=== PATIENT | female | born 1985 | race Two or more races ===

== ENCOUNTER 2017-04-05 18:30 | Emergency (ER) | payer MEDICAID, OTHER ==
[~2017-04-05] VITALS: Ht 157.5 cm; Wt 72.6 kg
[~2017-04-05 18:30] MED LIST: CYCLOBENZAPRINE10 MG ORAL; IBUPROFEN600 MG ORAL; NORCO 5-325 TA1 EACH ORAL
[2017-04-05 18:50] VITALS: BP 130/82
[2017-04-05 19:34] LABS: APPEARANCE,URINE CLEAR; BILIRUBIN, URINE NEGATIVE (NEGATIVE); COLOR,URINE PALE YELLOW; GLUCOSE, URINE (UA) NEGATIVE (NEGATIVE); KETONES,URINE NEGATIVE (NEGATIVE); LEUKOCYTE ESTERASE ,URINE 2+ (NEGATIVE); NITRITE,URINE NEGATIVE (NEGATIVE); PH,URINE 8 (4.5-8.0); PROTEIN,URINE NEGATIVE (NEGATIVE); UROBILINOGEN,URINE NORMAL MG/DL (0.0-1.0)
--- NOTE | 2017-04-05 19:44 | Emergency Room Report ---
History of Present Illness General Chief Complaint: Flu Like Symptoms Source: Patient Present Illness HPI 32-year-old female presents to the emergency department complaining of intermittent dull headache that she describes as 5/10 in severity with dry cough , nasal congestion, sneezing x1 month. Patient denies fevers or chills. Patient also reports increased pressure/discomfort in the left ear. She denies recent travel or ill contacts. Denies history of migraines, urinary frequency, urgency or dysuria. She denies nausea, vomiting, abdominal pain, weakness or tinnitus. Denies sore throat, high fevers, lethargy, neck pain/stiffness, irritability, photophobia dehydration, N/V/D. Denies Cp, Palpitations, LOC, AMS , seizures, paresthesias, or changes in Hearing or vision, no Sudden severe CORRAL. Allergies: Coded Allergies: NO KNOWN DRUG ALLERGIES (Unverified Allergy, Unknown, 03/05/14) Patient History Past Medical History: see triage record Past Surgical History: none Pertinent Family History: none Reviewed Nursing Documentation: PMH: Agreed, PSxH: Agreed Nursing Documentation-PMH Past Medical History: No Stated History Review of Systems All Other Systems: negative except mentioned in HPI Physical Exam Vital Signs Date Time Temp Pulse Resp B/P (MAP) Pulse Ox O2 Delivery O2 Flow Rate FiO2 04/05/17 18:39 97.9 72 20 130/82 96 Room Air Sp02 EP Interpretation: reviewed, normal General Appearance: no apparent distress, alert, GCS 15, non-toxic Head: normocephalic, atraumatic Eyes: bilateral eye normal inspection, bilateral eye PERRL ENT: hearing grossly normal, normal voice, TMs + canals normal, uvula midline, moist mucus membranes, nasal congestion Neck: full range of motion Respiratory: chest non-tender, lungs clear, normal breath sounds, no respiratory distress, no wheezing, speaking full sentences Cardiovascular #1: regular rate, rhythm Genitourinary: normal inspection, no CVA tenderness Musculoskeletal: back normal, gait/station normal, normal range of motion, non- tender Neurologic: alert, oriented x3, responsive, motor strength/tone normal, sensory intact, speech normal, grossly normal Psychiatric: judgement/insight normal Skin: normal color, no rash, warm/dry, well hydrated Lymphatic: no adenopathy Medical Decision Making PA Attestation Dr. Vegas is my supervising Physician whom patient management has been discussed with. Diagnostic Impression: Primary Impression: Upper respiratory infection Qualified Codes: J06.9 - Acute upper respiratory infection, unspecified Additional Impressions: Nasal congestion UTI (urinary tract infection) Qualified Codes: N30.00 - Acute cystitis without hematuria ER Course 32-year-old female presents to the emergency department complaining of intermittent dull headache that she describes as 5/10 in severity with dry cough , nasal congestion, sneezing x1 month. Patient denies fevers or chills. Patient also reports increased pressure/discomfort in the left ear. She denies recent travel or ill contacts. Denies history of migraines, urinary frequency, urgency or dysuria. She denies nausea, vomiting, abdominal pain, weakness or tinnitus. Denies sore throat, high fevers, lethargy, neck pain/stiffness, irritability, photophobia dehydration, N/V/D. Denies Cp, Palpitations, LOC, AMS , seizures, paresthesias, or changes in Hearing or vision, no Sudden severe CORRAL. Ddx considered but are not limited to URI, pneumonia, PE, strep pharyngitis, meningitis. Vital signs: Pt. is afebrile, the remaining VS are WNL H&PE are most consistent with URI- no meningeal signs, oropharynx is not involved, no evidence of bacterial infection at this time. Allergies also suspected to contribute to her symptoms. due to recurrent dull CORRAL will r/o UTI. ORDERS: -UA: positive for bacteria with increased inflammatory markers. ED INTERVENTIONS: None required at this time. --PT. EDUCATION: Discussed antibiotic resistance with inappropriate prescribing of antibiotics for viral illnesses. Discussed signs and symptoms to indicate viral illness versus bacterial illness. DISCHARGE: At this time pt. is stable for d/c to home. Will provide printed patient care instructions, and any necessary prescriptions. Care plan and follow up instructions have been discussed with the patient prior to discharge. Labs Test 04/05/17 19:10 Urine Color Pale yellow Urine Appearance Clear Urine pH 8 (4.5-8.0) Urine Specific [place] 1.010 (1.005-1.035) Urine Protein Negative (NEGATIVE) Urine Glucose (UA) Negative (NEGATIVE) Urine Ketones Negative (NEGATIVE) Urine Occult Blood Negative (NEGATIVE) Urine Nitrite Negative (NEGATIVE) Urine Bilirubin Negative (NEGATIVE) Urine Urobilinogen Normal MG/DL (0.0-1.0) Urine Leukocyte Esterase 2+ (NEGATIVE) Urine RBC 0-2 /HPF (0 - 2) Urine WBC 2-4 /HPF (0 - 2) Urine Squamous Epithelial Cells Few /LPF (NONE/OCC) Urine Amorphous Sediment Few /LPF (NONE) Urine Bacteria Few /HPF (NONE) Last Vital Signs Date Time Temp Pulse Resp B/P (MAP) Pulse Ox O2 Delivery O2 Flow Rate FiO2 04/05/17 18:50 72 20 Room Air 04/05/17 18:50 97.9 130/82 96 Disposition: HOME, SELF-CARE Condition: Stable Scripts Nitrofurantoin Monohyd/M-Cryst* (MACROBID 100 MG*) 100 Mg Capsule 100 MG ORAL EVERY 12 HOURS for 5 Days, #10 CAP Prov: Leann Bauer P.A. 04/05/17 Fluticasone Furoate (FLONASE SENSIMIST) 9.9 Ml [place].susp 9.9 ML NS DAILY, #9.9 ML Prov: Leann Bauer P.A. 04/05/17 Aspirin/Acetaminophen/Caffeine (EXCEDRIN MIGRAINE GELTAB) 1 Each Tablet 1 EACH PO Q6HR, #20 TAB Prov: Leann Bauer P.A. 04/05/17 Pseudoephedrine Hcl* (NEXAFED*) 30 Mg Tablet 30 MG ORAL Q6H Y for congestion, #20 TAB Prov: Leann Bauer P.A. 04/05/17 Guaifenesin (Guaifenesin) 1,200 Mg Tab.er.12h 1200 MG PO BID, #20 TAB Prov: Leann Bauer P.A. 04/05/17 Codeine/Promethazine Hcl* (PROMETHAZINE-CODEINE SYRUP*) 118 Ml Syrup 5 ML ORAL Q6H Y for For Cough, #120 ML 0 Refills Prov: Leann Bauer.A. 04/05/17 Patient Instructions: Upper Respiratory Infection, Adult, [id number] Additional Instructions: Take medications as directed. Follow up with a Primary Care Provider in 3-5 days, even if your symptoms have resolved. --Please review list of primary care clinics, if you do not already have a primary care provider Return sooner to ED if new symptoms occur, or current symptoms become worse. Do not drink alcohol, drive, or operate heavy machinery while taking Cough Syrup as this may cause drowsiness. - Please note that this Emergency Department Report was dictated using [employer] it technology software, occasionally this can lead to erroneous entry secondary to interpretation by the dictation equipment. Leann Bauer Apr 05, 2017 19:44
[2017-04-05] MEDS ORDERED: EXCEDRIN MIGRA1 EACH PO (19:46)
[2017-04-05] MEDS ORDERED: FLONASE SENSIM9.9 ML NS (19:46)
[2017-04-05] MEDS ORDERED: GUAIFENESIN1200 MG PO (19:46)
[2017-04-05] MEDS ORDERED: NEXAFED30 MG ORAL (19:46)
[2017-04-05] MEDS ORDERED: PROMETHAZINE-C118 M1 ORAL (19:46)
[2017-04-05] MEDS ORDERED: NITROFURANTOIN100 M2 ORAL (19:54)
[2017-04-05 20:02] VITALS: BP 122/75
== END 2017-04-05 20:02 | disposition home or self-care (01) ==
LOC: EMR 19:10
DX: J06.9 Acute upper respiratory infection, unspecified (principal); N39.0 Urinary tract infection, site not specified
CPT/HCPCS: 81003; 99284

== ENCOUNTER 2017-04-16 17:50 | Emergency (ER) | payer OTHER ==
[~2017-04-16] VITALS: Ht 157.5 cm; Wt 74.4 kg
[~2017-04-16 17:50] MED LIST changes: +EXCEDRIN MIGRA1 EACH PO; +FLONASE SENSIM9.9 ML NS; +GUAIFENESIN1200 MG PO; +NEXAFED30 MG ORAL; +NITROFURANTOIN100 M2 ORAL; +PROMETHAZINE-C118 M1 ORAL
[2017-04-16] MEDS ORDERED: NKM (18:26)
[2017-04-16] MEDS ORDERED: FLUCONAZOLE150 MG ORAL (18:36)
[2017-04-16] MEDS ORDERED: CLARITIN-D 121 EAC1 ORAL (18:49)
[2017-04-16 18:50] VITALS: BP 113/74
[2017-04-16 18:59] VITALS: BP 113/74
--- NOTE | 2017-04-17 15:11 | Emergency Room Report ---
History of Present Illness General Chief Complaint: Upper Respiratory Illness Source: Patient Present Illness HPI 32-year-old female presents ED for violation. Patient states she's noticing some vaginal itching and discharge. States it is white and curdish. Patient states she was received on antibiotics for UTI. States the dysuria has nearly resolved. Denies any fevers or chills. Denies flank pain. Denies nausea or vomiting. Denies any recent sexual unprotected. No other aggravating relieving factors. Denies any other associated symptoms Allergies: Coded Allergies: NO KNOWN DRUG ALLERGIES (Unverified Allergy, Unknown, 03/05/14) Patient History Past Medical History: none Past Surgical History: none Pertinent Family History: none Last Menstrual Period: 04/08/17 Now: No : 2 Para: 2 Immunizations: UTD Reviewed Nursing Documentation: PMH: Agreed, PSxH: Agreed Nursing Documentation-PMH Past Medical History: No Stated History Review of Systems All Other Systems: negative except mentioned in HPI Physical Exam Vital Signs Date Time Temp Pulse Resp B/P (MAP) Pulse Ox O2 Delivery O2 Flow Rate FiO2 04/16/17 18:10 98.0 67 18 113/63 94 Room Air 98.1 Sp02 EP Interpretation: reviewed, normal General Appearance: no apparent distress, alert, GCS 15, non-toxic Head: normocephalic, atraumatic Eyes: bilateral eye normal inspection, bilateral eye PERRL ENT: hearing grossly normal, normal pharynx, no angioedema, normal voice Neck: full range of motion, supple/symm/no masses Respiratory: chest non-tender, lungs clear, normal breath sounds, speaking full sentences Cardiovascular #1: regular rate, rhythm, no edema Cardiovascular #2: 2+ carotid (R), 2+ carotid (L), 2+ radial (R), 2+ radial (L) , 2+ dorsalis pedis (R), 2+ dorsalis pedis (L) Gastrointestinal: normal bowel sounds, non tender, soft, non-distended, no guarding, no rebound Rectal: deferred Genitourinary: normal inspection, no CVA tenderness Musculoskeletal: back normal, gait/station normal, normal range of motion, non- tender Neurologic: alert, oriented x3, responsive, motor strength/tone normal, sensory intact, speech normal Psychiatric: judgement/insight normal, memory normal, mood/affect normal, no suicidal/homicidal ideation Reflexes: 3+ bicep (R), 3+ bicep (L), 3+ tricep (R), 3+ tricep (L), 3+ knee (R) , 3+ knee (L) Skin: normal color, no rash, warm/dry, well hydrated Lymphatic: no adenopathy Medical Decision Making Diagnostic Impression: Primary Impression: Yeast infection ER Course Hospital Course 32-year-old female presents to ED complaining of white vaginal discharge. recently completed course of abx for UTI Differential diagnoses include: UTI, cystitis, pyelonephritis Clinical course Patient placed on stretcher. physical exam unremarkable. Reviewed EMR patient currently taking macrobid. likely yeast infection secondary to abx Diagnosis - yeast infection Stable and discharged home with prescriptions for Rx fluconazole. complete macrobid course. Instructed to followup with PMD. Return to ED if symptoms recur or worsen Last Vital Signs Date Time Temp Pulse Resp B/P (MAP) Pulse Ox O2 Delivery O2 Flow Rate FiO2 04/16/17 18:59 98.3 61 18 113/74 95 Room Air 98.3 Status: improved Disposition: HOME, SELF-CARE Condition: Stable Scripts Loratadine/Pseudoephedrine (CLARITIN-D 12 HOUR TABLET) 1 Each Tab.er.12h 1 TAB ORAL EVERY 12 HOURS, #30 TAB Prov: Leann Bauer 04/16/17 Fluconazole (FLUCONAZOLE) 150 Mg Tablet 150 MG ORAL DAILY for 3 Days, #3 TAB Prov: JONATAN ZAMORA M.D. 04/16/17 Referrals: [facility],REFERRING (PCP) Patient Instructions: Vaginal Yeast Infection, Adult JONATAN ZAMORA M.D. Apr 17, 2017 15:11
== END 2017-04-16 18:59 | disposition home or self-care (01) ==
LOC: EMR 18:01
DX: B37.9 Candidiasis, unspecified (principal); Z87.440 Personal history of urinary (tract) infections
CPT/HCPCS: 99283